=== PATIENT | female | born 1990 | race Caucasian/White ===

== ENCOUNTER 2020-11-19 21:47 | Inpatient (IN) | payer OTHER, MEDICAID ==
[~2020-11-19] VITALS: Ht 157.5 cm; Wt 59.0 kg
[2020-11-19 21:52] VITALS: BP 126/83
[2020-11-19] MEDS ORDERED: NOHOMEMEDICATIONS (21:58)
[2020-11-19 23:54] LABS: URINE BLOOD NEGATIVE (Negative); URINE CLARITY CLEAR; URINE COLOR ORANGE; URINE GLUCOSE-RANDOM TRACE (Negative); URINE KETONES TRACE (Negative); URINE LEUKOCYTES-REFLEX NEGATIVE (Negative); URINE NITRITE-REFLEX NEGATIVE (Negative); URINE PROTEIN TRACE (Negative); URINE SPECIFIC GRAVITY 1.025 (1.005-1.030); URINE UROBILINOGEN >= 8.0 E.U./dl (0.2-1.0)
[2020-11-19 23:58] LABS: URINE BILIRUBIN 2+ (Negative)
[2020-11-20] LABS: ICTOTEST (BILI CONFIRMATORY) Positive (Negative)
[2020-11-20 00:02] LABS: AMP/METHAMP Negative (Negative); BARBITURATES Negative (Negative); BENZODIAZEPINES Negative (Negative); COCAINE Negative (Negative); METHADONE Negative (Negative); OPIATES POSITIVE (Negative); PCP Negative (Negative); THC POSITIVE (Negative)
[2020-11-20 00:59] LABS: ABSOLUTE BASOPHILS 0.1 thou/uL (0.0-0.2); ABSOLUTE EOSINOPHILS 0.2 thou/uL (0.0-0.7); ABSOLUTE LYMPHOCYTES 1.7 thou/uL (0.8-5.3); ABSOLUTE MONOCYTES 0.6 thou/uL (0.0-1.2); BASOPHILS 0.9 %; EOSINOPHILS 1.9 %; HEMATOCRIT 33.7 % (37.0-47.0); HEMOGLOBIN 11.3 gm/dL (12.0-15.0); LYMPHOCYTES 16.3 %; MCH 33.4 pg (26.0-34.0); MCHC 33.4 g/dL (28.0-37.0); MCV 99.8 fL (80.0-100.0); MONOCYTES 5.7 %; MPV 7.4 fl. (7.2-11.1); NUCLEATED RBCS 0 /100WBC; PLATELET COUNT* 328 thou/uL (150-400); POLYS 75.2 %; RBC 3.38 mil/uL (4.20-5.00); RDW-CV 13.4 % (10.5-14.5); WBC 10.7 thou/uL (4.0-11.0)
[2020-11-20 01:00] LABS: CALCIUM 9.9 mg/dL (8.5-10.1); CREATININE 0.7 mg/dL (0.6-1.3)
[2020-11-20 01:05] LABS: ALBUMIN 3.4 g/dL (3.4-5.0); TOTAL BILIRUBIN 4.2 mg/dL (<0.1-1.0); TOTAL PROTEIN 8.2 g/dL (6.4-8.2)
[2020-11-20 02:13] LABS: ESR (SEDRATE) 83 mm/hr (0-20)
[2020-11-20 02:58] LABS: ALCOHOL < 10 mg/dL (<10)
[2020-11-20 03:06] LABS: ACETAMINOPHEN < 2 ug/mL (10-30)
[2020-11-20 03:07] LABS: SALICYLATE < 2.8 mg/dL (2.8-20.0)
[2020-11-20 06:15] VITALS: BP 110/80
[2020-11-20 08:00] VITALS: BP 118/88
[2020-11-20 08:59] VITALS: BP 110/80
[2020-11-20 08:59] LABS: CALCIUM 8.8 mg/dL (8.5-10.1); CREATININE 0.6 mg/dL (0.6-1.3); POTASSIUM 3.5 mmol/L (3.5-5.1)
--- NOTE | 2020-11-20 09:00 | NUR ---
ER ADMIT TO 226 VIA TELEPHONE REPORT GIVEN PRIOR TO ARRIVAL PATIENT C/O ABD PAIN PAIN MEDICATION TO BE GIVEN AND ADMIT TO BE DONE ORIENTED TO AND CALL LIGHT
[2020-11-20 09:02] LABS: MAGNESIUM 1.3 mg/dL (1.8-2.4); PHOSPHORUS* 4.3 mg/dL (2.5-4.9)
--- NOTE | 2020-11-20 11:53 | NUR ---
CM ASSESSED PT WHO INDICATED SHE LIVES WITH MOTHER AND BROTHER. PT INDICATED MOTHER AND FIANCE HAS TO HELP WIH BATHING AT TIMES, OVER THE PAST YEAR, DUE TO IMBALANCE. PT DOES NOT USE DMES. PT DENIES HX WITH HH OR SNF. CM TO CONT TO FOLLOW.
[2020-11-20 16:09] VITALS: BP 110/82
[2020-11-21] VITALS: BP 137/89
[2020-11-21 04:43] LABS: HEMATOCRIT 25.5 % (37.0-47.0); MCH 34.6 pg (26.0-34.0); MCHC 34.4 g/dL (28.0-37.0); MCV 100.5 fL (80.0-100.0); MPV 7.6 fl. (7.2-11.1); NUCLEATED RBCS 0 /100WBC; RBC 2.54 mil/uL (4.20-5.00); RDW-CV 13.1 % (10.5-14.5); WBC 8.1 thou/uL (4.0-11.0)
[2020-11-21 04:47] LABS: HEMOGLOBIN 8.8 gm/dL (12.0-15.0); PLATELET COUNT* 247 thou/uL (150-400)
[2020-11-21 04:53] LABS: APTT 32.7 Seconds (25.0-31.3); INR 1.6
[2020-11-21 05:18] LABS: ALBUMIN 2.8 g/dL (3.4-5.0); CALCIUM 9.4 mg/dL (8.5-10.1); CREATININE 0.8 mg/dL (0.6-1.3); DIRECT BILIRUBIN 1.9 mg/dL (<0.1-0.3); MAGNESIUM 1.4 mg/dL (1.8-2.4); PHOSPHORUS* 3.8 mg/dL (2.5-4.9); POTASSIUM 4.9 mmol/L (3.5-5.1)
--- NOTE | 2020-11-21 05:41 | NUR ---
PATIENT VERY ANXIOUS AND TEARFUL ENTIRE SHIFT. PT GIVEN BOXED LUNCH AT BEGINNING OF SHIFT PER DR GONZÁLES'S ORDER. PT MADE NPO AT MIDNIGHT FOR TODAY'S PROCEDURES. PT UP AD TIMO TO BATHROOM; DARK YELLOW URINE. PT WITH FLUIDS/ANTIBIOTICS AND POTASSIUM ORDERED. PT C/O ABD PAIN; MORPHINE 8MG IV GIVEN X3 ALONG WITH ZOFRAN IV. PT DOZED ON OCCASSION. FREQUENTLY USED ITEMS AND CALL LIGHT WITHIN REACH. SIDERAILS UPX2. WILL CONTINUE TO MONITOR.
[2020-11-21 06:21] LABS: ABSOLUTE LYMPHOCYTES 0.2 thou/uL (0.8-5.3); ABSOLUTE MONOCYTES 0.2 thou/uL (0.0-1.2); ABSOLUTE NEUTROPHILS 7.8 thou/uL (1.6-8.1); PLATELET ESTIMATE ADEQUATE
[2020-11-21 09:08] LABS: HEPATITIS B SURFACE AG Negative (Negative)
[2020-11-22] VITALS: BP 98/67
[2020-11-22 04:29] LABS: ABSOLUTE LYMPHOCYTES 0.4 thou/uL (0.8-5.3); ABSOLUTE MONOCYTES 0.2 thou/uL (0.0-1.2); ABSOLUTE NEUTROPHILS 8.5 thou/uL (1.6-8.1); BASOPHILS 0.1 %; HEMATOCRIT 24.8 % (37.0-47.0); HEMOGLOBIN 8.4 gm/dL (12.0-15.0); LYMPHOCYTES 4.6 %; MCH 33.9 pg (26.0-34.0); MCHC 33.7 g/dL (28.0-37.0); MCV 100.7 fL (80.0-100.0); MONOCYTES 2.4 %; MPV 7.8 fl. (7.2-11.1); NUCLEATED RBCS 0 /100WBC; PLATELET COUNT* 259 thou/uL (150-400); POLYS 92.9 %; RBC 2.47 mil/uL (4.20-5.00); RDW-CV 13.2 % (10.5-14.5); WBC 9.2 thou/uL (4.0-11.0)
[2020-11-22 04:35] LABS: INR 1.6; PROTIME 16.7 Seconds (9.20-11.50)
[2020-11-22 04:56] LABS: ALBUMIN 2.5 g/dL (3.4-5.0); CALCIUM 9.6 mg/dL (8.5-10.1); CREATININE 0.8 mg/dL (0.6-1.3); POTASSIUM 4.6 mmol/L (3.5-5.1); TOTAL BILIRUBIN 1.9 mg/dL (<0.1-1.0); TOTAL PROTEIN 6.4 g/dL (6.4-8.2)
[2020-11-22 08:10] VITALS: BP 107/75
[2020-11-22 16:32] VITALS: BP 112/82
[2020-11-22 20:00] VITALS: BP 113/76
[2020-11-22 22:06] LABS: IgG 1383 mg/dL (586-1602); IgM 168 mg/dL (26-217)
[2020-11-23 04:02] LABS: HEMOGLOBIN 8.4 gm/dL (12.0-15.0); NUCLEATED RBCS 0 /100WBC
[2020-11-23 04:04] LABS: ABSOLUTE LYMPHOCYTES 0.4 thou/uL (0.8-5.3); ABSOLUTE MONOCYTES 0.2 thou/uL (0.0-1.2); ABSOLUTE NEUTROPHILS 6.8 thou/uL (1.6-8.1); BASOPHILS 0.2 %; HEMATOCRIT 24.5 % (37.0-47.0); MCH 34.1 pg (26.0-34.0); MCHC 34.3 g/dL (28.0-37.0); MCV 99.6 fL (80.0-100.0); MPV 7.6 fl. (7.2-11.1); PLATELET COUNT* 229 thou/uL (150-400); POLYS 91.8 %; RBC 2.46 mil/uL (4.20-5.00); RDW-CV 13.2 % (10.5-14.5); WBC 7.4 thou/uL (4.0-11.0)
[2020-11-23 04:16] LABS: ALBUMIN 2.2 g/dL (3.4-5.0); CALCIUM 8.9 mg/dL (8.5-10.1); CREATININE 0.8 mg/dL (0.6-1.3); MAGNESIUM 1.4 mg/dL (1.8-2.4); PHOSPHORUS* 2.3 mg/dL (2.5-4.9); POTASSIUM 4.2 mmol/L (3.5-5.1); TOTAL BILIRUBIN 1.6 mg/dL (<0.1-1.0); TOTAL PROTEIN 5.6 g/dL (6.4-8.2)
--- NOTE | 2020-11-23 05:41 | NUR ---
PT A&O X 4, ANXIOUS AND TEARFUL. C/O PAIN ALL OVER HER BODY. MORPHINE GIVEN X 2. UP AD TIMO. IVF INFUISING. NPO SINCE MIDNIGHT FOR EGD. CALL LIGHT WITHIN REACH. WILL CONTINUE TO MONITOR.
[2020-11-23 08:10] VITALS: BP 115/79
[2020-11-23 11:08] LABS: ANTI-DNA SCREEN 2 IU/mL (0-9); ANTI-RNP <0.2 AI (0.0-0.9); ANTI-SSA <0.2 AI (0.0-0.9); ANTIJO-I AB <0.2 AI (0.0-0.9)
[2020-11-23 14:45] LABS: INR 1.5; PROTIME 15.4 Seconds (9.20-11.50)
--- NOTE | 2020-11-23 15:01 | NUR ---
PLAN OF CARE: PHYSICIAN INFORMS OF PLAN FOR THE PT TO POSSIBLY D/C OVER THE WEEKEND. NO CM D/C PLANNING NEEDS ANTICIPATED. CM WILL REMAIN AVAILABLE TO ASSIST AND FOLLOW NEEDED.
[2020-11-23 16:00] VITALS: BP 110/66
--- NOTE | 2020-11-23 18:39 | NUR ---
PATIENBT RESTING IN BED. PATIENT IS UP AD TIMO IN ROOM. PATIENT HAD EGD THIS AM WITHOUT INCIDENT. PATIENT IS TOLERATING REGULAR DIET BUT HAS REQUESTED ZOFRAN AND MORPHINE WITH MEALS. PATIENT HAS IV ABX INFUSING. PATIENT DENIES ANY NEEDS AT THIS TIME. CALL LIGHT WITHIN REACH.
[2020-11-23 19:45] VITALS: BP 114/80
--- NOTE | 2020-11-24 04:30 | NUR ---
PT A&O X 4. ON RA. ZOFRAN AND MORPHINE GIVEN X2 PER PT REQUEST. UP INDEPENDENTLY IN ROOM. SNACKS GIVEN. CALL LIGHT WITHIN REACH. WILL CONTINUE TO MONITOR.
[2020-11-24 05:13] LABS: HEMATOCRIT 25.9 % (37.0-47.0); HEMOGLOBIN 8.9 gm/dL (12.0-15.0); MCH 33.9 pg (26.0-34.0); MCHC 34.4 g/dL (28.0-37.0); MCV 98.7 fL (80.0-100.0); RBC 2.62 mil/uL (4.20-5.00); RDW-CV 13.5 % (10.5-14.5); WBC 6.2 thou/uL (4.0-11.0)
[2020-11-24 06:06] LABS: CALCIUM 9.3 mg/dL (8.5-10.1); CREATININE 0.7 mg/dL (0.6-1.3); POTASSIUM 3.8 mmol/L (3.5-5.1)
[2020-11-24 08:00] VITALS: BP 119/77
[2020-11-24 17:45] VITALS: BP 122/84
[2020-11-24 20:00] VITALS: BP 125/84
[2020-11-25] VITALS: BP 120/82
[2020-11-25 04:01] VITALS: BP 114/82
--- NOTE | 2020-11-25 07:47 | NUR ---
ASSUMED CARE OF PT AFTER REPORT AT 1930. PT A&OX4. VSS. PHYSICAL ASSESSMENT COMPLETED AND CHARTED. PT ON RA. PT ON MEDSURG STATUS. PT COMPLAINED OF ABDOMINAL PAIN & NAUSEA-MED GIVEN PER MAR. PT CLAIMED SHE BUMPED HER HEAD ON THE DOOR FRAME SHE IS UNSTEADY. PT DID NOT FALL. NO CONCUSSION NOTE. VITALS STABLE. DR OROZCO MADE AWARE. FALL PRECAUTIONS IN PLACE. CALL LIGHT WITHIN REACH.
[2020-11-25 08:00] VITALS: BP 110/83
[2020-11-25] MEDS ORDERED: PREDNISONE 10 M10 MG PO (09:51)
[2020-11-25] MEDS ORDERED: ONDANSETRON HCL4 M2 PO (09:51)
[2020-11-25] MEDS ORDERED: NORCO 10-325 T1 EACH PO (09:51)
[2020-11-25 11:09] VITALS: BP 110/83
[2020-11-25 11:10] VITALS: BP 110/83
--- NOTE | 2020-11-25 20:34 | NUR ---
1350 - d/c note patient iv taken out, has all belongings, including meds from pharmacy. has ride with cab voucher. Verbalized understandign of d/c papers and new scripts. taken out by wheelchair.
--- NOTE | 2020-11-27 11:07 | PATH ---
[address] [address] PATHOLOGY RPT PROCEDURE Name: PALAK VARNER Room: [address] IN M.R.#: [id number] Admission: 11/21/20 Date of : 88 Discharge: 11/25/20 Report #: [id number] Path Case #: [id number] [facility] Accession Number: [id number] . 01 Material submitted: . gastrointestinal site - GASTRIC ANTRUM . 01 Clinical history: . EGD IN OR HYPERBILIRUBINEMIA, N.V, RASG . 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 (SHARMILA:shira; 11/26/2020) . . Special stain: H. pylori immuno MBR 11/27/2020 1002 Local . 02 Electronically signed: . Juna Guajardo MD, Pathologist NPI- [id number] . 01 Gross description: . Received in formalin labeled "[place], [place], gastric anthrum biopsy" and confirmed on requisition as "anthrum" is a fragment of fernandes-brown soft tissue measuring 0.4 x 0.2 x 0.1 cm. The specimen is submitted entirely in A1. ([facility] 11/25/2020) [facility] 11/25/2020 [facility] Local . 02 Pathologist provided ICD-10: K29.50 . 02 CPT . 848670, [id number] Specimen Comment: A courtesy copy of this report has been sent to [phone] Specimen Comment: Report sent to DR. MURPHY Performed at: [address], [place] [address] MD Gurpreet Patterson MD Phone: [phone] Performed at: 02 [facility] [address], [place], [place] [id number] MD Juan Guajardo MD Phone: [phone]
== END 2020-11-25 14:14 | disposition home or self-care (01) | DRG 443 ==
LOC: M.ERS 21:47 → M.TBA-ER 11-20 03:51 → M.2W 11-20 03:51
PROVIDERS: Family Medicine; Internal Medicine; Internal Medicine Gastroenterology; Personal Emergency Response Attendant; Student in an Organized Health Care Education/Training Program; Surgery; ADMIT Internal Medicine; ATTEND Internal Medicine
PROC: 0W3P8ZZ Control Bleeding in Gastrointestinal Tract, Via Natural or Artificial Opening Endoscopic (ICD-10-PCS; principal; 2020-11-23)
DX: K75.81 Nonalcoholic steatohepatitis (NASH) (principal); R74.01 Elevation of levels of liver transaminase levels; E87.6 Hypokalemia; L98.491 Non-pressure chronic ulcer of skin of other sites limited to breakdown of skin; E83.42 Hypomagnesemia; K59.00 Constipation, unspecified; Z20.822 Contact with and (suspected) exposure to COVID-19; Z79.899 Other long term (current) drug therapy

== ENCOUNTER 2020-12-18 22:31 | Inpatient (IN) | payer OTHER, MEDICAID ==
[~2020-12-18] VITALS: Ht 157.5 cm; Wt 61.1 kg
[~2020-12-18 22:31] MED LIST: NOHOMEMEDICATIONS; NORCO 10-325 T1 EACH PO; ONDANSETRON HCL4 M2 PO; PREDNISONE 10 M10 MG PO
[2020-12-18 22:52] VITALS: BP 132/95
[2020-12-18] MEDS ORDERED: PREDNISONE 10 M10 MG PO (22:58)
[2020-12-19 01:03] LABS: ABSOLUTE LYMPHOCYTES 1.5 thou/uL (0.8-5.3); ABSOLUTE MONOCYTES 0.4 thou/uL (0.0-1.2); ABSOLUTE NEUTROPHILS 2.8 thou/uL (1.6-8.1); BASOPHILS 0.5 %; EOSINOPHILS 0.6 %; HEMOGLOBIN 9.2 gm/dL (12.0-15.0); LYMPHOCYTES 31.2 %; MCH 31.1 pg (26.0-34.0); MCHC 34.2 g/dL (28.0-37.0); MONOCYTES 8.1 %; MPV 6.4 fl. (7.2-11.1); NUCLEATED RBCS 0 /100WBC; PLATELET COUNT* 223 thou/uL (150-400); POLYS 59.6 %; RBC 2.97 mil/uL (4.20-5.00); RDW-CV 16.2 % (10.5-14.5); WBC 4.8 thou/uL (4.0-11.0)
[2020-12-19 01:06] LABS: CALCIUM 8.2 mg/dL (8.5-10.1); CREATININE 0.6 mg/dL (0.6-1.3)
[2020-12-19 01:07] LABS: POTASSIUM 2.8 mmol/L (3.5-5.1)
[2020-12-19 01:21] LABS: ALBUMIN 2.6 g/dL (3.4-5.0); TOTAL BILIRUBIN 1.1 mg/dL (<0.1-1.0); TOTAL PROTEIN 6.8 g/dL (6.4-8.2)
[2020-12-19 03:40] VITALS: BP 105/72
[2020-12-19 04:45] VITALS: BP 100/67
--- NOTE | 2020-12-19 07:25 | NUR ---
RECEIVED REPORT FROM ISAK FUENTES. PT TRANSFERRED TO RM 114. PT DROWSY. VSS. INSPECTING AND TESTING LEAD HAND IN PLACE.ADMISSION HISTORY & PHYSICAL ASSESSMENT COMPLETED AND CHARTED. ORIENTED TO ROOM & CALL LIGHT. PT ON RA. PT TRACING ST ON TELE. SEIZURE PRECUATION IN PLACE. PT COMPLAINED OF ABDOMINAL PAIN-PROVIDER MADE AWARE WITH NO ORDER. CALL LIGHT WITHIN REACH. TRANSFERRED PT TO RM 218 VIA BED AT 1945 WITH BELONGINGS.
[2020-12-19 08:26] VITALS: BP 108/61
[2020-12-19 12:00] VITALS: BP 119/91
--- NOTE | 2020-12-19 14:21 | NUR ---
CM ASSESSMENT: PT KNOWN TO THIS CM FROM PREVIOUS ADMISSION. PT CONTINUES TO RESIDE AT HOME WITH FAMILY. PT USES 0 DME. PT HAS 0 HX OF HH OR SNF. PT MAY BENEFIT FROM REFERRAL FOR [facility] CONSULTS TO ASSIST WITH DC PLANNING AND ETOH RESOURCES WHEN MEDICALLY STABLE. CM WILL REMAIN AVAILABLE TO ASSIST AND FOLLOW NEEDED.
--- NOTE | 2020-12-19 14:46 | EKG ---
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: [facility] : 1990 Requested By: Nimisha Thomas Order Number: [id number] MD: Eran White Measurements Intervals [place] Rate: 110 P: 63 NV: 132 QRS: 4 QRSD: 98 T: 63 QT: 383 QTc: 519 Interpretive Statements Sinus tachycardia RSR' in V1 or V2, probably normal variant Prolonged QT interval Baseline wander in lead(s) V1 No previous ECG available for comparison Electronically Signed On 12-19-2020 14:46:32 CDT by Eran White [email or web address] <ELECTRONICALLY SIGNED> By: Eran White MD, FACC 12/19/20 1446 0128 Eran White MD, FAC /EPI
[2020-12-19 18:54] VITALS: BP 137/97
[2020-12-19 20:00] VITALS: BP 131/99
[2020-12-19 22:37] LABS: URINE BLOOD NEGATIVE (Negative); URINE CLARITY CLEAR; URINE COLOR DARK YELLOW; URINE GLUCOSE-RANDOM TRACE (Negative); URINE KETONES NEGATIVE (Negative); URINE LEUKOCYTES-REFLEX NEGATIVE (Negative); URINE NITRITE-REFLEX NEGATIVE (Negative); URINE PROTEIN NEGATIVE (Negative)
[2020-12-19 22:40] LABS: ICTOTEST (BILI CONFIRMATORY) Negative (Negative); URINE BILIRUBIN 1+ (Negative)
[2020-12-19 22:46] LABS: AMP/METHAMP Negative (Negative); BARBITURATES Negative (Negative); BENZODIAZEPINES Negative (Negative); COCAINE Negative (Negative); METHADONE Negative (Negative); OPIATES Negative (Negative); PCP Negative (Negative); THC POSITIVE (Negative)
[2020-12-20] VITALS: BP 136/47
[2020-12-20 03:48] VITALS: BP 123/92
--- NOTE | 2020-12-20 04:20 | NUR ---
ASSUMED CARE OF PT AFTER REPORT AT 1930. PT A&OX4. CONFUSED & FORGETFUL AT TIMES. ANXIOUS. RESTLESS. TEARFUL. IMPULSIVE. VSS. PHYSICAL ASSESSMENT COMPLETED AND CHARTED. PT ON RA. PT TRACING SR/ST ON TELE. PT UPSTANDBY TO BSC. URINE SPECIMEN SENT TO LAB. PT COMPLAINED OF ABDOMINAL PAIN-PROVIDER MADE AWARE WITH NEW ORDER. MAINTAINED ON CLEAR LIQUID DIET. PT TRIED TO GET OUT OF BED MULTIPLE TIMES. NURSING STAFF HAS TO GO INSIDE PT ROOM EVERY 2-3 MINS. PT ALSO TRIED TO SMOKE-CONFISCATED CIGARETTES, FLASHLIGHT & MEDS-WILL SURRENDER TO SECURITY IN AM. SEIZURE PRECAUTION IN PLACE. CIWA CHARTED. MED GIVEN PER MAR. FALL PECAUTIONS IN PLACE. CALL LIGHT WITHIN REACH.
[2020-12-20 04:32] LABS: HEMATOCRIT 26.3 % (37.0-47.0); HEMOGLOBIN 8.9 gm/dL (12.0-15.0); MCHC 33.7 g/dL (28.0-37.0); MCV 92.1 fL (80.0-100.0); MPV 7.1 fl. (7.2-11.1); RBC 2.86 mil/uL (4.20-5.00); RDW-CV 16.1 % (10.5-14.5); WBC 3.3 thou/uL (4.0-11.0)
[2020-12-20 04:38] LABS: INR 1.5; PROTIME 15.1 Seconds (9.20-11.50)
[2020-12-20 06:07] LABS: ALBUMIN 2.5 g/dL (3.4-5.0); CALCIUM 8.4 mg/dL (8.5-10.1); CREATININE 0.7 mg/dL (0.6-1.3); MAGNESIUM 1.5 mg/dL (1.8-2.4); POTASSIUM 3.8 mmol/L (3.5-5.1); TOTAL BILIRUBIN 2.3 mg/dL (<0.1-1.0); TOTAL PROTEIN 6.4 g/dL (6.4-8.2)
[2020-12-20 08:00] VITALS: BP 123/94
[2020-12-20 12:00] VITALS: BP 125/95
--- NOTE | 2020-12-20 12:41 | NUR ---
PLAN OF CARE: PHYSICIAN INFORMS THAT PT REMAINS ON CIWA AND SEIZURE PRECAUTIONS. PT REMAINS TELE STATUS. CM D/C PLANNING NEEDS TBD AT THIS TIME. BUT PT MAY BENEFIT FROM [facility] CONSULTS VISIT WHEN MEDICALLY STABLE AND MORE A&O. CM WILL REMAIN AVAILABLE TO ASSIST AND FOLLOW NEEDED.
[2020-12-20 17:29] VITALS: BP 136/100
[2020-12-20 20:00] VITALS: BP 128/89
[2020-12-21] VITALS: BP 140/102
[2020-12-21 03:47] LABS: HEMATOCRIT 26.8 % (37.0-47.0); MCH 30.8 pg (26.0-34.0); MCHC 33.7 g/dL (28.0-37.0); MCV 91.4 fL (80.0-100.0); MPV 7.1 fl. (7.2-11.1); RBC 2.93 mil/uL (4.20-5.00); RDW-CV 15.8 % (10.5-14.5); WBC 3.5 thou/uL (4.0-11.0)
[2020-12-21 03:59] LABS: ALBUMIN 2.6 g/dL (3.4-5.0); CALCIUM 8.4 mg/dL (8.5-10.1); CREATININE 0.6 mg/dL (0.6-1.3); MAGNESIUM 1.5 mg/dL (1.8-2.4); POTASSIUM 3.4 mmol/L (3.5-5.1); TOTAL BILIRUBIN 1.5 mg/dL (<0.1-1.0); TOTAL PROTEIN 6.5 g/dL (6.4-8.2)
[2020-12-21 04:00] VITALS: BP 127/96
--- NOTE | 2020-12-21 04:52 | NUR ---
PT ANXIOUS, VISUAL HALLUCINATIONS AT TIMES. PT HEARING PEOPLE TALKING AT TIMES. CIWA 14-20. LORAZEPAM GIVEN. 1:1 SITTER WITH PT. DIPHENHYDRAMINE GIVEN HS FOR SLEEP. SENIOR BIOSTATISTICIAN TRACING SR.
--- NOTE | 2020-12-21 06:25 | NUR ---
ANAY GARCIA. UNABLE TO OBTAIN A NEW SITE. MARISEL BRITO NOTIFIED AND SAID HE WOULD PASS IT ON TO JIMMIE GARCIA. PT CONTINUES TO BE 1:1 TEARFUL AT TIMES. YELLING AT TIMES.
[2020-12-21 08:32] VITALS: BP 123/92
--- NOTE | 2020-12-21 12:39 | NUR ---
PLAN OF CARE: PHYSICIAN INFORMS PT NOT MEDICALL STABLE. PT REMAINS TELE STATUS. PT MAY BENEFIT FROM VISIT WITH [facility] CONSULT PRIOR TO D/C, AND WHEN MEDICALLY STABLE. PT MAY BE READY TO D/C OVER THE WEEKEND. NO OTHER CM D/C PLANNING NEEDS ANTICIPATED. CM WILL REMAIN AVAILABLE TO ASSIST AND FOLLOW NEEDED.
[2020-12-21 16:00] VITALS: BP 139/111
[2020-12-21 20:00] VITALS: BP 130/98
[2020-12-22] VITALS: BP 130/94
--- NOTE | 2020-12-22 01:58 | NUR ---
ALERT ORIENTED TO SELF. HALLUCINATIONS VISUAL AND AUDITORY. CIWA 20-24. LORAZEPAM GIVEN. BENADRYL GIVEN FOR SLEEP. TYLENOL GIVEN FOR BACK PAIN. PT DOSES OFF FOR SHORT PERIODS THEN IS WIDE AWAKE. AUTOMOTIVE GLAZIER TRACING SR. 1:1 SITTER IN ROOM WITH PT. R PIC IN PLACE.
[2020-12-22 04:00] VITALS: BP 126/90
[2020-12-22 06:44] LABS: MAGNESIUM 1.9 mg/dL (1.8-2.4); POTASSIUM 3.4 mmol/L (3.5-5.1)
[2020-12-22 09:00] VITALS: BP 117/85
[2020-12-22 17:21] VITALS: BP 140/102
[2020-12-22 20:00] VITALS: BP 106/74
[2020-12-23 00:30] VITALS: BP 128/95
[2020-12-23 00:31] VITALS: BP 125/94
--- NOTE | 2020-12-23 05:48 | NUR ---
PT ALERT ORIENTED TO SELF, CRYING AT TIMES. PT HAVING VISUAL AND AUDITORY HALLUCINATIONS. LORAZEPAM GIVEN. 1:1 SITTER AT BS. PT ALSO HAVING EPISOIDS OF INTENSE ITCHING. BENADRYL GIVEN FOR THAT. BLUE SPLIT TRIMMER TRACING SR.
[2020-12-23 09:00] VITALS: BP 128/87
[2020-12-23 12:00] VITALS: BP 117/87
[2020-12-23 17:44] VITALS: BP 130/97
--- NOTE | 2020-12-23 18:52 | NUR ---
1739-PT HAS BEEN BACK TO [facility] MENTAL STATUS ALL DAY,NO OUTBURSTS CUSSING OR SCREAMING.HAD TELEHEALTH EVAL WITH PSYCH MD THIS NURSE WAS IN ROOM ENTIRE TIME AND PT WAS APPROPRIATE. PT AGREES TO NEW MED REGIME OF BUSISABEL AND NANY. CALLED DR. BARRIENTOS FOR ORDER TO RELEASE SITTER. ORDER OBTAINED.INFORMED PT AND SHE WAS RELIEVED SHE SAID IT MAKES HER UNCOMFORTABLE.
[2020-12-23 20:00] VITALS: BP 134/89
[2020-12-24 00:38] VITALS: BP 132/82
--- NOTE | 2020-12-24 04:57 | NUR ---
ASSUMED PT CARE AT APPROX 1930. PT IS AWAKE AND ORIENTED X4, CONFUSED AT TIMES, RESTLESS AND ANXIOUS. PT IS NOT IN DISTRESS, NO DESATURATIONS NOTED ON ROOM AIR. PT IS ANXIOUS AND TEARFUL. PT IS CLOSELY MONITORED. CALL LIGHT WITHIN REACH, HOURLY ROUNDING DONE FOR PT SAFETY. FALL PRECAUTIONS IN PLACE.
[2020-12-24 05:43] VITALS: BP 135/82
[2020-12-24 09:00] VITALS: BP 121/85
[2020-12-24] MEDS ORDERED: PRENATAL PO (10:52)
[2020-12-24] MEDS ORDERED: VITAMIN B-1100 M1 PO (10:52)
[2020-12-24] MEDS ORDERED: NORCO5 PO (10:52)
[2020-12-24] MEDS ORDERED: LORAZEPAM 1 MG T1 MG PO (10:52)
[2020-12-24] MEDS ORDERED: CYMBALTA60 MG PO (11:19)
[2020-12-24] MEDS ORDERED: BUSPIRONE HCL10 MG PO (11:19)
[2020-12-24 11:44] VITALS: BP 121/85
== END 2020-12-24 18:25 | disposition home or self-care (01) | DRG 897 ==
LOC: M.ERS 22:31 → M.2W 12-19 02:19 → M.TBA-ER 12-19 02:19 → M.ORTHSURG 12-19 03:32 → M.2W 12-19 07:05
PROVIDERS: Internal Medicine; Personal Emergency Response Attendant; ADMIT Internal Medicine; ATTEND Internal Medicine
PROC: B548ZZA Ultrasonography of Superior Vena Cava, Guidance (ICD-10-PCS; principal; 2020-12-21)
PROC: 02HV33Z Insertion of Infusion Device into Superior Vena Cava, Percutaneous Approach (ICD-10-PCS; principal; 2020-12-21)
PROC: B5181ZA Fluoroscopy of Superior Vena Cava using Low Osmolar Contrast, Guidance (ICD-10-PCS; principal; 2020-12-21)
DX: F10.139 Alcohol abuse with withdrawal, unspecified (principal); K76.6 Portal hypertension; K70.30 Alcoholic cirrhosis of liver without ascites; K21.9 Gastro-esophageal reflux disease without esophagitis; E87.6 Hypokalemia; F10.129 Alcohol abuse with intoxication, unspecified; D50.9 Iron deficiency anemia, unspecified; F17.210 Nicotine dependence, cigarettes, uncomplicated; R11.15 Cyclical vomiting syndrome unrelated to migraine; K31.819 Angiodysplasia of stomach and duodenum without bleeding; L40.9 Psoriasis, unspecified; L40.50 Arthropathic psoriasis, unspecified; Z83.3 Family history of diabetes mellitus; Z82.49 Family history of ischemic heart disease and other diseases of the circulatory system; Z71.41 Alcohol abuse counseling and surveillance of alcoholic; Z71.6 Tobacco abuse counseling; Z65.8 Other specified problems related to psychosocial circumstances

== ENCOUNTER 2020-12-29 21:41 | Inpatient (IN) | payer OTHER, MEDICAID ==
[~2020-12-29] VITALS: Ht 157.5 cm; Wt 59.0 kg
--- NOTE | ~2020-12-29 | EMS ---
[address] [address] EMS Patient Care Report Name: CAMERON VARNER Room: [facility]#: [id number] Admission: 12/29/20 Attend Phys: Discharge: Date of : 88 Report #: [id number] THIS REPORT FOR: //name// Report Transmitted: 12/29/2020 21:24 EMS Care Summary [facility] Incident [phone] @ 12/29/2020 20:55 Incident Location [address] [place] [address] Patient CAMERON VARNER Female, 30 Years 1990 Patient Address [address] [place] [address] Patient History Seizures, Patient Allergies Penicillin allergy, Patient Medications None Reported, Chief Complaint seizures Disposition Transported No Lights/[place] Dispatch Reason Convulsions/Seizure Transported To [facility] Narrative DISPATCHED EMERGENT RESPONDED EMERGENT ON SEIZURES. ARRIVED ON SCENE WITHOUT INCIDENT. UPON ARRIVAL PATIENT WAS FOUND LYING ON FLOOR OF RESIDENCE. PATIENT IS ALERT [address] [address] EMS Patient Care Report Name: CAMERON VARNER Room: [facility]#: [id number] Admission: 12/29/20 Attend Phys: Discharge: Date of : 88 Report #: [id number] AND ORIENTED X4 AT THIS TIME. PATIENT STATES SHE DOESNT REMEMBER EXACTLY WHAT HAPPENED PRIOR TO EMS ARRIVAL. PATIENTS MOTHER IS ON SCENE WELL. MOTHER STATES THAT SHE WITNESSED PATIENT HAVE 2 SEIZURES. BOTH SEIZURES DESCRIBED FULL BODY SHAKING AND CLENCHING LASTING APPROXIMATELY 30 SECONDS PER EPISODE. PATIENT DOES HAVE A HISTORY OF SEIZURES. PATIENT REQUESTING TRANSPORT TO [facility] AT THIS TIME. PATIENT IS ABLE TO STAND AT THIS TIME AND AMBULATE WITHOUT DIFFICULTY. PATIENT IS ASSISTED TO STRETCHER, COVERED AND SECURED WITH RESTRAINTS. TAKEN TO AMBULANCE. EN ROUTE PATIENT REMAINS CALM AND COOPERATIVE ON STRETCHER. NO NEW COMPLAINTS REPORTED. PATIENT REMAINS CALM AND COOPERATIVE ON STRETCHER. VITALS MONITORED CONTINUOUSLY. RADIO REPORT CALLED TO ED. PATIENT DOES BEGIN TO TO SHAKE HER ARMS AND LEGS BUT CONTINUES TO TRACK EMS WITH HER EYES AND ANSWER QUESTIONS. THIS EPISODE LASTS 30 SECONDS. PATIENT REMAINS ALERT AND ORIENTED X4. UPON ARRIVAL TO ED PATIENT IS TAKEN TO ED ROOM 10 WHERE PATIENT REPORT IS GIVEN DIRECTLY TO RN AT BEDSIDE. PATIENT ABLE TO STAND AND PIVOT ONTO BED WITHOUT DIFFICULTY. PATIENT CARE TRANSFERRED DIRECTLY TO RN AT BEDSIDE. PATIENT IN STABLE CONDITION AT TRANSFER OF CARE. Initial Vitals @21:10P: 125,SpO2: 98, @21:27P: 125,CO: 10,SpO2: 95, @21:21P: 127,CO: 1,SpO2: 95, @21:35P: 131,CO: 3,SpO2: 96, @21:31P: 125, @21:26P: 122,CO: 5,SpO2: 97, @21:16P: 135,CO: 5,SpO2: 98, @21:09P: 132,SpO2: 99, @21:11P: 125,CO: 2,SpO2: 97, @21:08P: 66,R: 18,BP: 101/67,Pain: 0/10,GCS: 15,Glucose: 125,SpO2: 97,Revised Trauma: 12, @21:36P: 126,R: 18,BP: 104/40,Pain: 0/10,GCS: 15,Glucose: 125,SpO2: 96,Revised Trauma: 12, Impression Seizures Procedures @21:093-Lead ECGResponse: UnchangedSucceeded@21:32ALS AssessmentResponse: UnchangedSucceeded@21:32Saline Lock 0cc (22 ga) Site: Hand-LeftResponse: UnchangedFailed Timeline 20:53,[place] [address] EMS Patient Care Report Name: CAMERON VARNER [id number] Admission: 12/29/20 Attend Phys: Discharge: Date of : 88 Report #: [id number] 20:53,Psap Call 20:55,Dispatched 20:57,En Route 21:00,Initial Responder On Scene 21:00,On Scene 21:01,At Patient 21:08,BP: 101/67 M,PULSE: 66,RR: 18 R,SPO2: 97 Ox,ETCO2: ,B,PAIN: 0,GCS: 15, 21:09,3-Lead ECG,Response: UnchangedSucceeded, 21:09,BP: / M,PULSE: 132,RR: R,SPO2: 99 Ox,ETCO2: ,BG: ,PAIN: ,GCS: , 21:10,BP: / M,PULSE: 125,RR: R,SPO2: 98 Ox,ETCO2: ,BG: ,PAIN: ,GCS: , 21:11,Depart Scene 21:11,BP: / M,PULSE: 125,RR: R,SPO2: 97 Ox,ETCO2: ,BG: ,PAIN: ,GCS: , 21:16,BP: / M,PULSE: 135,RR: R,SPO2: 98 Ox,ETCO2: ,BG: ,PAIN: ,GCS: , 21:21,BP: / M,PULSE: 127,RR: R,SPO2: 95 Ox,ETCO2: ,BG: ,PAIN: ,GCS: , 21:26,BP: / M,PULSE: 122,RR: R,SPO2: 97 Ox,ETCO2: ,BG: ,PAIN: ,GCS: , 21:27,BP: / M,PULSE: 125,RR: R,SPO2: 95 Ox,ETCO2: ,BG: ,PAIN: ,GCS: , 21:31,BP: / M,PULSE: 125,RR: R,SPO2: Ox,ETCO2: ,BG: ,PAIN: ,GCS: , 21:32,ALS Assessment,Response: UnchangedSucceeded, 21:32,Saline Lock 0cc 22 ga Site: Hand-Left,Response: UnchangedFailed, 21:35,BP: / M,PULSE: 131,RR: R,SPO2: 96 Ox,ETCO2: ,BG: ,PAIN: ,GCS: , 21:36,BP: 104/40 M,PULSE: 126,RR: 18 R,SPO2: 96 Ox,ETCO2: ,B,PAIN: 0,GCS: 15, 21:37,At Destination 22:13,Call Closed Disclaimer v1.1 Copyright 2020 [employer] This EMS Care Summary contains data elements from the applicable legal record (which may be displayed differently). It is designed to provide pertinent information for the following purposes: continuity of care, clinical quality, and state data reporting. The complete legal record is available to ED staff and administrators of the receiving hospital in [employer] Patient Tracker. All data is provided "as is."
[~2020-12-29 21:41] MED LIST changes: +BUSPIRONE HCL10 MG PO; +CYMBALTA60 MG PO; +LORAZEPAM 1 MG T1 MG PO; +NORCO5 PO; +PRENATAL PO; +VITAMIN B-1100 M1 PO
[2020-12-29 21:42] VITALS: BP 117/68
[2020-12-29 22:18] LABS: ABSOLUTE BASOPHILS 0.1 thou/uL (0.0-0.2); ABSOLUTE EOSINOPHILS 0.2 thou/uL (0.0-0.7); ABSOLUTE MONOCYTES 0.7 thou/uL (0.0-1.2); ABSOLUTE NEUTROPHILS 3.9 thou/uL (1.6-8.1); BASOPHILS 0.9 %; EOSINOPHILS 2.5 %; HEMATOCRIT 40.1 % (37.0-47.0); HEMOGLOBIN 13.4 gm/dL (12.0-15.0); LYMPHOCYTES 44.8 %; MCHC 33.4 g/dL (28.0-37.0); MCV 92.9 fL (80.0-100.0); MONOCYTES 7.9 %; NUCLEATED RBCS 0 /100WBC; PLATELET COUNT* 333 thou/uL (150-400); POLYS 43.9 %; RBC 4.32 mil/uL (4.20-5.00); RDW-CV 18.4 % (10.5-14.5)
[2020-12-29 22:28] LABS: CREATININE 0.6 mg/dL (0.6-1.3)
[2020-12-29 22:32] LABS: ALBUMIN 3.4 g/dL (3.4-5.0); MAGNESIUM 2.1 mg/dL (1.8-2.4); TOTAL BILIRUBIN 1.4 mg/dL (<0.1-1.0); TOTAL PROTEIN 8.6 g/dL (6.4-8.2)
[2020-12-30 04:50] VITALS: BP 101/57
[2020-12-30 08:49] VITALS: BP 95/58
--- NOTE | 2020-12-30 10:25 | EKG ---
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1990 Requested By: Selena Alvarado Order Number: [id number] MD: Jimbo Chou Measurements Intervals [place] Rate: 116 P: 87 MO: 133 QRS: 195 QRSD: 102 T: 72 QT: 363 QTc: 505 Interpretive Statements Sinus tachycardia Right atrial enlargement Right axis deviation Prolonged QT interval Baseline wander in lead(s) V1,V2,V3,V4,V5,V6 Compared to ECG 12/19/2020 01:28:19 Atrial abnormality now present Right-axis deviation now present Electronically Signed On 12-30-2020 10:25:36 CDT by Jimbo Chou [email or web address] <ELECTRONICALLY SIGNED> By: Jimbo Chou MD, [facility] 12/30/20 1025 52 52 Jimbo Chou MD, [facility] /EPI
[2020-12-30 12:50] VITALS: BP 96/51
[2020-12-30 15:22] VITALS: BP 93/58
[2020-12-30 16:00] VITALS: BP 97/67
[2020-12-30 16:37] LABS: INR 1.4; PROTIME 14.7 Seconds (9.20-11.50)
[2020-12-30 16:38] LABS: CALCIUM 7.9 mg/dL (8.5-10.1); PHOSPHORUS* 2.8 mg/dL (2.5-4.9)
[2020-12-30 20:00] VITALS: BP 118/77
[2020-12-30 21:15] LABS: URINE BILIRUBIN NEGATIVE (Negative); URINE BLOOD NEGATIVE (Negative); URINE CLARITY CLEAR; URINE COLOR DARK YELLOW; URINE GLUCOSE-RANDOM NEGATIVE (Negative); URINE KETONES NEGATIVE (Negative); URINE LEUKOCYTES-REFLEX NEGATIVE (Negative); URINE NITRITE-REFLEX NEGATIVE (Negative); URINE PROTEIN NEGATIVE (Negative); URINE SPECIFIC GRAVITY 1.025 (1.005-1.030)
[2020-12-30 21:56] LABS: AMP/METHAMP Negative (Negative); BARBITURATES Negative (Negative); BENZODIAZEPINES Negative (Negative); COCAINE Negative (Negative); METHADONE Negative (Negative); OPIATES POSITIVE (Negative); PCP Negative (Negative); THC POSITIVE (Negative)
[2020-12-31] VITALS: BP 111/77
[2020-12-31 04:00] VITALS: BP 112/78
--- NOTE | 2020-12-31 08:18 | NUR ---
PT SLEPT MOST OF SHIFT. ASSESSMENT DOCUMENTED. MEDS GIVEN PER E-MAR. IV PATENT, FLUIDS INFUSING. PAIN MEDS GIVEN PER E-MAR PER PT REQUEST. SEIZURE PRECAUTIONS IN PLACE. FALL PRECAUTIONS IN PLACE. CIWA CHARTED. PT REPORTED INDEGESTION, NOTIFIED, ORDERS RECIEVED. WILL CONTINUE WITH PLAN OF CARE.
[2020-12-31 09:00] VITALS: BP 139/80
[2020-12-31 11:07] LABS: T7 1.3 (1.2-4.9)
[2020-12-31 12:00] VITALS: BP 117/83
--- NOTE | 2020-12-31 13:55 | NUR ---
CM ASSESSMENT: PT IS KNOWN TO THIS CM FROM PREVIOUS ADMISSION. PT IS A READMIT PT RESIDES AT HOME WITH FAMILY. PT USES 0 DME. PT HAS 0 HX OF HH OR SNF. PT MAY BENEFIT FROM INPT ETOH PLACEMENT. CM TO SPEAK TO THE PT AND HER FAMILY TO DISCUSS THIS. HOWEVER PT MUST BE WILLING TO SIGN HERSELF INTO INPT ETOH TREATMENT. CM WILL REMAIN AVAILABLE TO ASSIST AND FOLLOW NEEDED.
[2020-12-31 16:49] VITALS: BP 118/83
[2020-12-31 23:49] VITALS: BP 120/80
[2021-01-01 03:50] VITALS: BP 124/87
[2021-01-01 05:38] LABS: CALCIUM 8.6 mg/dL (8.5-10.1); CREATININE 0.5 mg/dL (0.6-1.3); MAGNESIUM 1.7 mg/dL (1.8-2.4); PHOSPHORUS* 2.9 mg/dL (2.5-4.9); POTASSIUM 4.6 mmol/L (3.5-5.1)
--- NOTE | 2021-01-01 06:05 | NUR ---
PT SLEPT ON AND OFF OVERNIGHT, REQUESTING PAIN MEDS FREQUENTLY FOR ABD PAIN, GIVEN ORDERED. NO N/V. UP WITH ASSIST TO BR TO VOID. LFA IVF INFUSING PER PUMP. TELE STS. AM LABS. PT CONFUSED AND FORGETFUL AT TIMES. TEARFUL AT TIMES BUT COOPERATIVE AND NOT IMPULSIVE THIS SHIFT. BED ALARM ON FOR SAFETY, CALL LITE IN EASY REACH.
[2021-01-01 08:00] VITALS: BP 121/83
[2021-01-01] MEDS ORDERED: VITAMIN B-1100 M1 PO (11:58)
[2021-01-01] MEDS ORDERED: LORAZEPAM 1 MG T1 MG PO (11:58)
[2021-01-01] MEDS ORDERED: ZYPREXA 5 MG TAB5 M1 PO (11:58)
[2021-01-01] MEDS ORDERED: CYMBALTA60 MG PO (11:58)
[2021-01-01] MEDS ORDERED: NORCO5 PO (11:58)
[2021-01-01] MEDS ORDERED: PRENATAL PO (11:58)
[2021-01-01] MEDS ORDERED: BUSPIRONE HCL10 MG PO (11:58)
[2021-01-01] MEDS ORDERED: XIFAXAN550 M1 PO (11:58)
[2021-01-01 12:00] VITALS: BP 121/96
[2021-01-01 12:58] VITALS: BP 121/83
--- NOTE | 2021-01-01 14:31 | NUR ---
ASSUMED PT CARE AT 0730, PT ANSWERS ORIENTATION QUESTIONS APPROPRIATELY BUT CAN BE CONFUSED OR FORGETFUL. PT WORKED W/ DR HUANG AND DC ORDERS RECEIVED. IV AND DIRECTOR HOSPICE OPERATIONS REMOVED. PT DC'D BY W/ NURSING STAFF W/ ALL PAPERWORK AND PERSONAL BELONGINGS TO [facility] TO TAKE HER TO HER OWN HOUSE AT APPROX 1345
== END 2021-01-01 13:45 | disposition home or self-care (01) | DRG 896 ==
LOC: M.ERS 21:41 → M.2W 23:55 → M.TBA-ER 23:55 → M.2W 12-30 15:38
PROVIDERS: Emergency Medicine; ADMIT Family Medicine; ATTEND Family Medicine
DX: F10.221 Alcohol dependence with intoxication delirium (principal); R65.11 Systemic inflammatory response syndrome (SIRS) of non-infectious origin with acute organ dysfunction; I42.9 Cardiomyopathy, unspecified; I42.6 Alcoholic cardiomyopathy; Y90.0 Blood alcohol level of less than 20 mg/100 ml; L40.50 Arthropathic psoriasis, unspecified; M19.09 Primary osteoarthritis, other specified site; F17.210 Nicotine dependence, cigarettes, uncomplicated; K21.9 Gastro-esophageal reflux disease without esophagitis; Z20.822 Contact with and (suspected) exposure to COVID-19